=== PATIENT | male | born 1985 | race Caucasian/White ===

== ENCOUNTER 2017-01-07 05:39 | Emergency (ER) | payer BC ==
[~2017-01-07] VITALS: Ht 172.7 cm; Wt 95.3 kg
[2017-01-07] MEDS ORDERED: COSENTYX (150 MG/1 M SQ (05:54)
[2017-01-07] MEDS ORDERED: ADIPEX-P37.5 M2 PO (05:54)
[2017-01-07] MEDS ORDERED: Motrin,Rufen800 MG PO (06:12)
[2017-01-07] MEDS ORDERED: CYCLOBENZAPRINE10 MG PO (06:12)
== END 2017-01-07 06:53 | disposition home or self-care (01) ==
LOC: ED 05:39
DX: M54.5 Low back pain (principal); F17.200 Nicotine dependence, unspecified, uncomplicated; Z79.899 Other long term (current) drug therapy

== ENCOUNTER 2017-08-21 14:58 | Emergency (ER) | payer BC ==
[~2017-08-21] VITALS: Ht 172.7 cm; Wt 106.6 kg
[~2017-08-21 14:58] MED LIST: ADIPEX-P37.5 M2 PO; COSENTYX (150 MG/1 M SQ; CYCLOBENZAPRINE10 MG PO; Motrin,Rufen800 MG PO
[2017-08-21] MEDS ORDERED: ZITHROMAX250 MG PO (15:18)
[2017-08-21] MEDS ORDERED: PREDNISONE20 M1 PO (15:18)
[2017-08-21 15:51] LABS: BASO % 0.4 % (0.0-1.0); EOS # 0.4 10*3/uL (0.0-0.4); EOS % 4.3 % (1.0-4.0); HEMATOCRIT 40.3 % (42.0-52.0); HEMOGLOBIN 13.7 g/dl (14.0-18.0); LYMPH # 1.9 10*3/uL (1.3-4.4); LYMPH % 21.4 % (27.0-41.0); MEAN CORPUSCULAR HGB 29.6 pg (27.0-31.0); MEAN PLATELET VOLUME 9.2 fl (9.6-12.3); MONO # 0.8 10*3/uL (0.1-1.0); MONO % 9.3 % (3.0-9.0); NEUT # 5.7 10*3/uL (2.3-7.9); NEUT % 63.2 % (47.0-73.0); PLATELET COUNT AUTOMATED 243 10*3/uL (130-400); RED BLOOD COUNT 4.63 10*6/uL (4.50-5.90); RED CELL DISTRI WIDTH 13.5 % (0-14.5); WHITE BLOOD COUNT 9.1 10*3/uL (4.8-10.8)
[2017-08-21 16:09] LABS: ALBUMIN 3.7 gm/dl (3.1-4.5); ALKALINE PHOSPHATASE 62 U/L (45-117); BUN 11 mg/dl (7-24); CHLORIDE 102 mmol/L (98-107); CREATININE 0.69 mg/dL (0.70-1.30); POTASSIUM 3.5 mmol/L (3.5-5.1); SGOT/AST 29 IU/L (3-35); SGPT/ALT 72 U/L (12-78); SODIUM 138 mmol/L (136-145); TOTAL PROTEIN 7.6 gm/dL (6.4-8.2)
[2017-08-21] MEDS ORDERED: FLONASE ALLERG9.9 ML NAS (16:40)
[2017-08-21] MEDS ORDERED: ROBITUSSIN DM 105 ML PO (16:40)
[2017-08-21] MEDS ORDERED: CLARITIN10 MG PO (16:40)
[2017-08-21] MEDS ORDERED: PREDNISONE50 MG PO (16:40)
[2017-08-21] MEDS ORDERED: PREDNISONE10 MG PO (16:41)
== END 2017-08-21 18:22 | disposition home or self-care (01) ==
LOC: ED 14:58
PROVIDERS: Nurse Practitioner Family
DX: J20.9 Acute bronchitis, unspecified (principal); R03.0 Elevated blood-pressure reading, without diagnosis of hypertension; F17.200 Nicotine dependence, unspecified, uncomplicated; Z79.899 Other long term (current) drug therapy

== ENCOUNTER → 2021-09-24 | Outpatient (CLI) | payer BC ==
[~2021-09-24] MED LIST changes: +CLARITIN10 MG PO; +FLONASE ALLERG9.9 ML NAS; +PREDNISONE10 MG PO; +PREDNISONE20 M1 PO; +PREDNISONE50 MG PO; +ROBITUSSIN DM 105 ML PO; +ZITHROMAX250 MG PO
== END | disposition home or self-care (01) ==
LOC: COVID19 15:06
PROVIDERS: ATTEND Internal Medicine
DX: U07.1 COVID-19 (principal)